=== PATIENT | female | born 1985 | race Caucasian/White ===

== ENCOUNTER → 2018-01-12 | Outpatient (CLI) | payer MEDICAID ==
[2017-07-11 20:00] VITALS: BMI 34.4
[~2018-01-12] MED LIST: AMOX500T10 PO; ASPI-1471 PO; B&C/1TAB2 PO; Benzocaine 60 ML TP; CALC-748 PO; DOCU240C67 PO; ENOX40DI8 SC; ENOX40DI8 SQ; HYDR-4309 PO; HYDR2TAB4 PO; IBUP800T37 PO; LOR5/325 PO; Lanolin TP; ONDA4TAB PO; PNV-9 PO; PREN-127 PO; PROG100C PO; PROG200C PO; WARF2TAB73 PO; [UNRECOGNIZED DRUG - CODE]; heparin
--- NOTE | 2018-01-12 11:21 | RADIOLOGY IMAGING REPORT ---
FACILITY: [facility] PATIENT NAME: Danya Corey : 1985 MR: [id number] V: [id number] EXAM DATE: ORDERING PHYSICIAN: ALLEN WINSLOW TECHNOLOGIST: [place] [facility] [place] Danya Corey : 1985 Visit/Account:[id number] Date of Sevice: 01/12/2018 KNEE LEFT W/O CONTRAST COMPARISON: None. HISTORY: Left knee pain, felt a pop in the knee for months ago, pain ever since that time TECHNIQUE: Noncontrast multiplanar MRI of the left knee utilizing T1 weighted and fluid sensitive se quences. CONTRAST: None. FINDINGS: FLUID: No significant effusion with a physiologic quantity of fluid in the joint. Juarez's cyst measu ring 0.8 x 1.8 x 3.9 cm with a trace amount of fluid tracking caudally from it suggesting partial rup ture. MENISCI: There is abnormal oblique intermediate linear signal in the posterior horn of the medial me niscus which does not definitively contact the surface of the meniscus on sagittal series but on luh nal images, it extends to the peripheral third of the meniscus, series 5 images 16 and 17, and on a s wang image it contacts the undersurface, series 5 image 16. The appearance is consistent with a fior pheral oblique tear with a small undersurface component. The rest of the medial meniscus is intact an d the lateral meniscus is intact. TENDONS/LIGAMENTS: The cruciate and medial collateral ligaments, lateral collateral ligamentous comp oni and extensor mechanism are intact. The biceps and popliteus tendons are intact. MUSCLES: There is no muscle atrophy or edema. CARTILAGE: No full-thickness cartilage defects are seen. BONES: There is no marrow signal abnormality or osseous malalignment. OTHER: Negative. IMPRESSION: 1. Peripheral oblique tear in the posterior horn of the medial meniscus, with a subtle undersurface component seen on a single image. 2. 3.9 cm left knee Juarez's cyst. Report Dictated By: Juan Machado at 01/12/2018 11:09 AM Report E-Signed By: Juan Machado at 01/12/2018 11:16 AM WSN:[id number]
== END ==
LOC: RAD 09:23
PROVIDERS: ATTEND Physician Assistant Medical
DX: S83.242A Other tear of medial meniscus, current injury, left knee, initial encounter (principal); M71.22 Synovial cyst of popliteal space [Baker], left knee

== ENCOUNTER 2018-11-21 05:13 | Inpatient (IN) | payer MEDICAID ==
[2018-11-21] VITALS (7 sets, daily range): BP systolic 122–139; BP diastolic 72–92; Ht 160 cm; Wt 86.2 kg
[~2018-11-21] VITALS: Ht 160 cm; Wt 86.2 kg
[~2018-11-21 05:13] MED LIST changes: -HYDR-4309 PO; +HYDR-653 PO
[2018-11-21] MEDS ORDERED: ACETAMINOPHEN 500 MG TAB PO PRN (05:15)
[2018-11-21] MEDS ORDERED: ONDANSETRON 4 MG/2 ML VIAL IVP PRN (05:15)
[2018-11-21] MEDS ORDERED: fentaNYL CITR 100 MCG/2 ML AMP IVP PRN (05:15)
[2018-11-21] MEDS ORDERED: LIDOCAINE/SOD BICARB 8.4% SYR SC PRN (05:15)
[2018-11-21] MEDS ORDERED: TERBUTALINE SULF 1 MG/ML VIAL SUBQ PRN (05:15)
[2018-11-21] MEDS ORDERED: METOCLOPRAMIDE 10 MG/2 ML SDV IVP PRN (05:15)
[2018-11-21] MEDS ORDERED: LIDOCAINE 1% LOCAL 300 MG/30ML INJ PRN (05:15)
[2018-11-21] MEDS ORDERED: FAMOTIDINE(*) 20MG/50ML PREMIX 50 ML IVPB PRN ×2 (05:15→06:30)
[2018-11-21] MEDS ORDERED: OXYTOCIN 30 UNIT/D5LR 500 ML 500 ML IV PRN ×5 (05:15→22:58)
[2018-11-21] MEDS ORDERED: cefOXitin/DEX(*) 2GM/50ML PREM 50 ML IVPB PRN (05:15)
[2018-11-21] MEDS ORDERED: PENICILLIN G 5 MILLUN/100 ML 100 ML IVPB ONE (06:00)
[2018-11-21 06:03] LABS: PLATELET COUNT, AUTOMATED 130 K/uL (150-450)
[2018-11-21] MEDS: LR(*) 1000 ML BAG 1,000 ML IV PRN ×2 (06:26→10:13)
[2018-11-21] MEDS ORDERED: CALCIUM CARBONATE 500 MG CHEW PO PRN (06:30)
[2018-11-21] MEDS ORDERED: [UNRECOGNIZED DRUG - CODE] (06:38)
[2018-11-21] MEDS ORDERED: [UNRECOGNIZED DRUG - CODE] SUBQ (07:18)
[2018-11-21] MEDS ORDERED: CALCIUM GLUC 10% 100 MG/ML VL IVP PRN (08:10)
[2018-11-21] MEDS ORDERED: MAGNESIUM SUL* 4 GM/100 ML BAG 100 ML IVPB ONE (10:00)
[2018-11-21] MEDS ORDERED: PENICILLIN G 2.5 MILLUN/100 ML 100 ML IVPB SCH (10:00)
[2018-11-21] MEDS ORDERED: MAGNESIUM SULF 20 GM/500 ML IV 500 ML IV SCH (10:30)
[2018-11-21] MEDS ORDERED: CARBOPROST TROMETHAM 250MCG/ML IM ONLY ONE (11:49)
[2018-11-21] MEDS: MAGNESIUM SULF 20 GM/500 ML IV 500 ML IV SCH (12:33)
[2018-11-21] MEDS ORDERED: LANOLIN OINT 7 GM TUBE TP PRN (12:35)
[2018-11-21] MEDS ORDERED: APAP/HYDROCODONE 325/5 TAB PO PRN (12:35)
[2018-11-21] MEDS ORDERED: MAGNESIUM HYDROXIDE* 30ML UDCP PO PRN (12:35)
[2018-11-21] MEDS ORDERED: GLYCERIN/WITCH HAZEL LEAF 1 PK TP PRN (12:35)
[2018-11-21] MEDS ORDERED: ACETAMINOPHEN 325 MG TAB PO PRN (12:35)
[2018-11-21] MEDS ORDERED: LABETALOL HCL 20 MG/4 ML SYR IVP PRN (12:35)
[2018-11-21] MEDS ORDERED: HYDROCORTISONE 2.5% CR 30GM TB PR PRN (12:35)
[2018-11-21] MEDS ORDERED: BENZOCAINE 20% 60 ML BTL TP PRN (12:35)
--- NOTE | 2018-11-21 12:48 | History & Physical ---
History of Present Illness Age of Patient: 33 : 7 Para or TPAL: 4 EDC per U/S: Dec 05, 2017 Estimated Gestational Age: 38.0 Chief Complaint Chronic hypertension for induction of labor History of Present Illness Mary has a history of hypertensive disease in prior pregnancies with preeclampsia with her first and gestational hypertension with the others. She has always been induced for hypertension disorders at 37-38 weeks. She has a heterozygous mutation for prothrombin gene and has been taking Lovenox 40 mg BID through switched to Heparin 10k units BID since 36 weeks. She held her PM dose last night. This has been typical for her others with mild range pressures and no evidence of superimposed preeclampsia throughout. Her most recent labs last week were WNL. She was given steroids at 35 weeks in case we delivered before 37 weeks. Labs this AM showed mild elevation in liver enzymes, slightly decreased plts at 130 but spot ptn/cr ratio at 0.2. She is being induced due to the chronic hypertension and impending superimposed preeclampsia. Likely she has a variant of HELLP developing. Past Medical, Surgical, Family and Obstetric Histories reviewed. Please see ACOG ch art. History Allergies: Coded Allergies: No Known Drug Allergies (Unverified , 11/30/16) Social History: No T/E/D. . Family History: No Family History of: FH: diabetes mellitus FH: heart disease FH: hypertension Malignant hyperthermia Med Rec Home Meds Reported Medications Heparin Sodium,Porcine/Pf (HEPARIN 2,000 UNIT/2 ML VIAL) 1,000 Unit/1 Ml Vial, 95121 UNIT SUBQ, VIAL 11/21/18 B&C/Fa/Zinc/Copper Oxide/Vit E (STRESS B-COMPLEX TABLET) 1 Each Tablet, 1 EACH PO 07/11/17 Calcium/Vit B12/Fa/Pyridoxine (FOLIC ACID-VIT B6-VIT B12 TAB) 1 Each Tablet, 1 EACH PO 11/30/16 Pnv With Ca,No.71/Iron/Fa ( VITAMIN TABLET) 1 Each Tablet, 1 EACH PO DAILY, TAB 07/28/14 Discontinued Reported Medications Heparin Sod,Porcine/0.9 % NaCl (Heparin 10,000 Unit/1,000Ml-Ns) 10K/1000ML Iv.soln 11/21/18 Discontinued Scripts Ibuprofen (IBUPROFEN) 800 Mg Tablet, 1 TAB PO Q8H, #30 TAB 0 Refills Take with food every 8 hours. Prov:CAREY CODY MD 07/13/17 Hydromorphone Hcl (HYDROMORPHONE HCL) 2 Mg Tablet, 2-4 MG PO Q4H for PAIN, #20 TAB 0 Refills Prov:CAREY CODY MD 07/13/17 Enoxaparin Sodium (LOVENOX) 40 Mg/0.4 Ml Disp.syrin, 40 MG SC QHS@2200 for 45 Days, SYR 0 Refills Prov:CAREY CODY MD 07/13/17 Review of Systems All Systems Reviewed/Normal: Yes, Except as Noted Eyes: No Vision Change Gastrointestinal: No Abdominal Pain Exam General Exam Vital Signs Vital Signs Date Time Temp Pulse Resp B/P (MAP) Pulse Ox O2 Delivery O2 Flow Rate FiO2 11/21/18 06:00 98.2 122 19 124/72 (89) 94 Room Air General Apperance: Alert/Awake/No Acute Distress Neuro: No Gross deficits Eyes: Normal Extraocular Movement & Vison Cardiovascular: Regular Rate and Rhythm Respiratory: No Respiratory Distress Abdomen: Soft, Non-Tender, Non-Distended, Gravid - Non-Tender, RUQ Non-Tender Integumentary: Skin Intact without Lesions or Rash Psychological: Alert & Oriented X3, Appropriate Mood & Affect Cervical Dialation: 5 Cervical Effacement (%): 100 Station: -2 Presentation: Vertex Fetus Heart Tone Variabilty: Moderate FHT Accelerations: 15X15 FHT Category: I Medical Decision Making Data Points Result Diagram: 11/21/1845 11/21/18544 VTE Prophylasis: Adult Pharmacological Contraindicati: Pt at Low Risk for VTE Mechanical Contraindications: Pt at Low Risk for VTE 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 Will add Magnesium for seizure prophylaxis although considering asymptomatic and no severe pressures or proteinuria, she likely has a variant of HELLP. Will treat as for severe preeclampsia with seizure prophylaxis for 24 horus . Monitor for worsening closely. Problem Qualifiers (1) HELLP (hemolytic anemia/elev liver enzymes/low platelets in ): Trimester: third trimester Qualified Codes: O14.23 - HELLP syndrome (HELLP), third trimester ABIGAIL LAGUERRE MD Nov 21, 2018 12:48
--- NOTE | 2018-11-21 12:52 | OB Delivery Note ---
Delivery Note Vaginal Delivery Type: Spont. Vaginal Delivery Delivery Date: Nov 21, 2018 Delivery Time: 12:11 Estimated Gestational Age(wks): 38.0 Infant Sex: Female Infant Weight (gms): [address] [place] Apgars: 1 Minute (8), 5 Minute (8) Repair Needed: Episiotomy-Midline, 2nd Degree Estimated Blood Loss: 300 Notes: Presented 3-4 cm dilated and abx prophylaxis for GBS started. Recieved 2 doses prior to delivery. Pitocin infusion initiated. After labs showing probable HELLP syndrome in, started MgSO4 for seizure prophylaxis. Pitocin titration to active pattern and AROM performed with clear fluid. Rapid progression after to complete by 1207. Effective pushes bringing baby to position. Pt requested episiotomy and midline performed. Delivery in SANDER position over second degree laceration without complication or extension. Placenta delivered spontaneous and intact. No complications. Uterus massaged firm. [employer] in Attendence: No Copies to: ABIGAIL LAGUERRE MD ; ABIGAIL LAGUERRE MD Nov 21, 2018 12:52
[2018-11-21] MEDS: IBUPROFEN 800 MG TAB PO SCH (13:19)
[2018-11-21] MEDS ORDERED: LR(*) 1000 ML BAG 1,000 ML ONE (20:23)
[2018-11-21] MEDS ORDERED: EUCALYPTUS/MENTHOL LOZ MM PRN ×2 (20:40)
[2018-11-21] MEDS ORDERED: BENZOCAINE/MENTHOL 1 EACH LOZG PO PRN (20:40)
[2018-11-21] MEDS ORDERED: LR(*) 1000 ML BAG 1,000 ML IV PRN (20:45)
[2018-11-21] MEDS: DOCUSATE CALCIUM 240 MG CAP PO SCH (20:56)
[2018-11-21] MEDS: CHLORPH/HYDROCOD SUSP CR 5 ML PO PRN (21:04)
[2018-11-22] VITALS (17 sets, daily range): BP systolic 109–158; BP diastolic 60–89
[2018-11-22] MEDS: IBUPROFEN 800 MG TAB PO SCH ×3 (00:13→18:27)
[2018-11-22] MEDS: MAGNESIUM SULF 20 GM/500 ML IV 500 ML IV SCH (04:04)
[2018-11-22] MEDS ORDERED: MISOPROSTOL 200 MCG TAB PO ONE ×2 (05:05→09:00)
[2018-11-22] MEDS ORDERED: MISOPROSTOL 200 MCG TAB ONE (05:07)
--- NOTE | 2018-11-22 08:31 | OB/GYN Progress Note ---
OB Subjective Progress Notes Subjective Pitocin stopped last night and uterus became boggy but no increase in bleeding. Cytotec 400 mcg administered PO and she had an adverse reaction to this with tachycardia and anxiety. It self resolved in about an hour. Uterus has remained firm since. Pt feeling tired and fatigued due to the magnesium. Labs trending toward improvement. Urine output has been high. GI: NEG Nausea : Voiding Well OB Objective Physical Exam Vital Signs Date Time Temp Pulse Resp B/P (MAP) Pulse Ox O2 Delivery O2 Flow Rate FiO2 11/22/18 08:10 105 16 116/60 (78) 97 Room Air 11/22/18 07:10 98.1 Intake and Output 11/22/18 07:00 Intake Total 5360 ml Output Total 5585 ml Balance -225 ml Intake Oral 3240 ml IV Total 2120 ml Output Urine Total 5585 ml # Voids 11 General Appearance: Alert/Awake/No Acute Distress Neurological: No Gross deficits Eyes: Normal Extraocular Movement & Vison Cardiovascular: Normal Rhythm & Peripheral Pulses, Regular Rate and Rhythm Respiratory: No Respiratory Distress, Clear to Auscultation Abdomen: Soft, Non-Tender, Non-Distended, Fundus Firm, Non-Tender Integumentary: Skin Intact without Lesions or Rash Psychological: Alert & Oriented X3, Appropriate Mood & Affect Result Diagram: 11/22/1847 11/22/18646 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 Monitor progress today. (3) care and examination immediately after delivery Status: Acute Assessment & Plan: Continue fior-care and monitor bleeding. Problem Qualifiers (1) HELLP (hemolytic anemia/elev liver enzymes/low platelets in ): Trimester: third trimester Qualified Codes: O14.23 - HELLP syndrome (HELLP), third trimester ABIGAIL LAGUERRE MD Nov 22, 2018 08:31
[2018-11-22] MEDS ORDERED: MEASLES,MUMP,RUBELLA VAC 0.5ML SUBQ ONE (09:00)
[2018-11-22] MEDS: DOCUSATE CALCIUM 240 MG CAP PO SCH ×2 (09:00→21:00)
[2018-11-22] MEDS ORDERED: DIPHTH/TETANUS/ACEL. PERTUSSIS IM ONLY ONE (09:00)
[2018-11-22] MEDS ORDERED: INFLUENZA VIRUS VAC 0.5ML SYR IM ONLY ONE (09:00)
[2018-11-22] MEDS: CHLORPH/HYDROCOD SUSP CR 5 ML PO PRN ×2 (09:44→23:52)
[2018-11-23] MEDS: IBUPROFEN 800 MG TAB PO SCH ×2 (01:33→08:30)
[2018-11-23 03:18] VITALS: BP 135/78
[2018-11-23] MEDS: DOCUSATE CALCIUM 240 MG CAP PO SCH (08:30)
[2018-11-23 08:48] VITALS: BP 124/61
[2018-11-23 10:22] LABS: PLATELET COUNT, AUTOMATED 197 K/uL (150-450)
--- NOTE | 2018-11-23 10:58 | OB/GYN Progress Note ---
OB Subjective Progress Notes Subjective Feeling well other than cold symptoms. Cough suppressant helps with sleep. Bleeding light and uterus firm. No blood pressure issues. Labs all trending back to normal. GI: NEG Nausea : Voiding Well Pain: Mild OB Objective Physical Exam Vital Signs Date Time Temp Pulse Resp B/P (MAP) Pulse Ox O2 Delivery O2 Flow Rate FiO2 11/23/18 08:48 97.7 101 18 124/61 (82) 95 Room Air Intake and Output 11/23/18 07:00 Intake Total 1100 ml Output Total 2000 ml Balance -900 ml Intake Oral 1100 ml Output Urine Total 2000 ml # Voids 1 General Appearance: Alert/Awake/No Acute Distress Neurological: No Gross deficits Eyes: Normal Extraocular Movement & Vison Cardiovascular: Normal Rhythm & Peripheral Pulses, Regular Rate and Rhythm Respiratory: No Respiratory Distress, Clear to Auscultation Abdomen: Soft, Non-Tender, Non-Distended, Fundus Firm, Non-Tender Integumentary: Skin Intact without Lesions or Rash Psychological: Alert & Oriented X3, Appropriate Mood & Affect Result Diagram: 11/23/18 1016 11/23/18 1016 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 Labs trending normal. Will check again at 6 weeks . Precautions for symptoms and call if worsens. (3) care and examination immediately after delivery Status: Acute Problem Qualifiers (1) HELLP (hemolytic anemia/elev liver enzymes/low platelets in ): Trimester: third trimester Qualified Codes: O14.23 - HELLP syndrome (HELLP), third trimester ABIGAIL LAGUERRE MD Nov 23, 2018 10:58
[2018-11-23] MEDS ORDERED: HYDR473S47 PO (11:13)
[2018-11-23] MEDS ORDERED: ENOX40DI8 SQ (11:13)
--- NOTE | 2018-11-23 11:14 | OB/GYN Discharge Summary ---
Discharge Summary Reason for Hosp/Final Diag: (1) Gestational [-induced] hypertension without significant proteinuria, third trimester (2) HELLP (hemolytic anemia/elev liver enzymes/low platelets in ) Hospital Course & Plan: resolving with time. Labs trending normal. Will check again at 6 weeks . Precautions for symptoms and call if worsens. (3) care and examination immediately after delivery Status: Acute Lates Vital Signs Vital Signs Date Time Temp Pulse Resp B/P (MAP) Pulse Ox O2 Delivery O2 Flow Rate FiO2 11/23/18 08:48 97.7 101 18 124/61 (82) 95 Room Air Weight (Pounds): 190 Result Diagram: 11/23/18 1016 11/23/18 1016 Condition: Improved Discharge: Home, Self Mcc Meds Active Scripts Hydrocodone/Chlorphen Polis (HYDROCODONE-CHLORPHENIRAM SUSP) 473 Ml Iman.er.12h, 5 ML PO Q12H PRN for COUGH, #4 OZ 0 Refills Prov:ABIGAIL BENÍTEZ MD 11/23/18 Reported Medications Heparin Sodium,Porcine/Pf (HEPARIN 2,000 UNIT/2 ML VIAL) 1,000 Unit/1 Ml Vial, 57743 UNIT SUBQ, VIAL 11/21/18 B&C/Fa/Zinc/Copper Oxide/Vit E (STRESS B-COMPLEX TABLET) 1 Each Tablet, 1 EACH P O 07/11/17 Calcium/Vit B12/Fa/Pyridoxine (FOLIC ACID-VIT B6-VIT B12 TAB) 1 Each Tablet, 1 EACH PO 11/30/16 Pnv With Ca,No.71/Iron/Fa ( VITAMIN TABLET) 1 Each Tablet, 1 EACH PO DAILY, TAB 07/28/14 Discontinued Reported Medications Heparin Sod,Porcine/0.9 % NaCl (Heparin 10,000 Unit/1,000Ml-Ns) 10K/1000ML Iv.soln 11/21/18 Discontinued Scripts Ibuprofen (IBUPROFEN) 800 Mg Tablet, 1 TAB PO Q8H, #30 TAB 0 Refills Take with food every 8 hours. 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 Benítez [phone] Follow up in: 6 wks PP or PO Discharge Diet: As Tolerates Discharge Activity: As Tolerates, No Heavy Lifting x 6 wks, No Heavy Lifting > 10lb, Pelvic Rest Copies to: ABIGAIL BENÍTEZ MD ; Problem Qualifiers (1) HELLP (hemolytic anemia/elev liver enzymes/low platelets in ): Trimester: third trimester Qualified Codes: O14.23 - HELLP syndrome (HELLP), third trimester ABIGAIL BENÍTEZ MD Nov 23, 2018 11:14
[2018-11-23] MEDS ORDERED: ENOXAPARIN 40 MG/0.4ML SYR SC ONE (11:15)
[2018-11-23 12:59] VITALS: BP 124/73
== END 2018-11-23 14:30 | disposition home or self-care (01) | DRG 806 ==
LOC: OB 05:13
PROVIDERS: ADMIT Obstetrics & Gynecology; ATTEND Obstetrics & Gynecology
PROC: 10E0XZZ Delivery of Products of Conception, External Approach (ICD-10-PCS; principal; 2018-11-21)
PROC: 3E033VJ Introduction of Other Hormone into Peripheral Vein, Percutaneous Approach (ICD-10-PCS; 2018-11-21)
PROC: 0W8NXZZ Division of Female Perineum, External Approach (ICD-10-PCS; 2018-11-21)
DX: O14.24 HELLP syndrome, complicating childbirth (principal); D68.52 Prothrombin gene mutation; Z37.0 Single live birth; O99.12 Other diseases of the blood and blood-forming organs and certain disorders involving the immune mechanism complicating childbirth; O10.92 Unspecified pre-existing hypertension complicating childbirth; Z3A.38 38 weeks gestation of pregnancy; T47.1X5A Adverse effect of other antacids and anti-gastric-secretion drugs, initial encounter; Y92.230 Patient room in hospital as the place of occurrence of the external cause; F41.9 Anxiety disorder, unspecified
CPT/HCPCS: 36415; 82040; 82247; 82310; 82374; 82435; 82565; 82570; 82947; 83615; 84075; 84132; 84155; 84156; 84295; 84450; 84460; 84520; 84550; 85025; 85027; 86703; 86850; 86900; 86901; J1650; J2001; J2540; J2590; J3475; J3490; J7120

== ENCOUNTER 2018-11-29 10:47 | Emergency (ER) | payer MEDICAID ==
[2018-11-21 06:00] VITALS: Wt 79.8 kg
[~2018-11-29 10:47] MED LIST changes: +HYDR473S47 PO; +[UNRECOGNIZED DRUG - CODE] SUBQ
--- NOTE | 2018-11-29 10:53 | ER Report ---
History and Physical Time Seen By MD: 10:53 HPI/ROS CHIEF COMPLAINT: Chest pain and fever HISTORY OF PRESENT ILLNESS: This is a 33-year-old female who presents to emergency department for chest pain and fever. The patient is a , 8 days, with a history of a clotting disorder and Lovenox use during . She also had help syndrome at the end of her 3rd trimester. Patient had a uncomplicated vaginal delivery. She has been febrile and not feeling well for the last week. Saw her JUDGE'S CLERK today, she had developed some right anterior chest pain, increasing in intensity over the last 1-2 days. She is tachycardic, was sent to the ER for further evaluation. Patient is not ill-appearing however she is warm, tachycardic on the bedside monitor with a rate of 120s, with a temperature of 99.7 in the emergency department, she also taken ibuprofen prior to arrival. She denies meningismus. No shortness of breath. No nausea or vo miting. No headaches. No rashes. No abdominal pain that has been unusual since the delivery. REVIEW OF SYSTEMS: Constitutional: As above. Eyes: No discharge. ENT: No sore throat. Cardiovascular: No chest pain, no palpitations. Respiratory: As above. Gastrointestinal: No abdominal pain, no vomiting. Genitourinary: No hematuria. Musculoskeletal: No back pain. Skin: No rashes. Neurological: No headache. Allergies: Coded Allergies: No Known Drug Allergies (Unverified , 11/29/18) Home Meds Active Scripts Enoxaparin Sodium (LOVENOX) 40 Mg/0.4 Ml Disp.syrin, 40 MG SQ BID, #30 SYR 1 Refill Prov:ABIGAIL LAGUERRE MD 11/23/18 Reported Medications Pnv With Ca,No.71/Iron/Fa ( VITAMIN TABLET) 1 Each Tablet, 1 EACH PO DAILY, TAB 07/28/14 Discontinued Reported Medications B&C/Fa/Zinc/Copper Oxide/Vit E (STRESS B-COMPLEX TABLET) 1 Each Tablet, 1 EACH PO 07/11/17 Calcium/Vit B12/Fa/Pyridoxine (FOLIC ACID-VIT B6-VIT B12 TAB) 1 Each Tablet, 1 EACH PO 11/30/16 Heparin Sodium,Porcine/Pf (HEPARIN 2,000 UNIT/2 ML VIAL) 1,000 Unit/1 Ml Vial, 07577 UNIT SUBQ, VIAL 11/21/18 Discontinued Scripts Hydrocodone/Chlorphen Polis (HYDROCODONE-CHLORPHENIRAM SUSP) 473 Ml Iman.er.12h, 5 ML PO Q12H PRN for COUGH, #4 OZ 0 Refills Prov:ABIGAIL LAGUERRE MD 11/23/18 Past Medical/Surgical History The patient has a past medical and surgical history of prothrombic gene mutation. . Reviewed Nurses Notes: Yes Hx Smoking: No Smoking Status: Former Smoker Exposure to Second Hand Smoke?: No Hx Substance Use Disorder: No Hx Alcohol Use: No Constitutional Vital Sign - Last 24 Hours 11/29/18 11/29/18 11/29/18 11/29/18 10:47 10:56 10:57 11:00 Temp 99.7 Pulse 138 139 Resp 15 B/P (MAP) 132/90 (104) 132/90 129/94 (106) Pulse Ox 95 95 O2 Delivery Room Air 11/29/18 11/29/18 11/29/18 11/29/18 11:17 11:22 11:45 11:48 Pulse 129 128 B/P (MAP) ???/??? (1665) 133/87 (102) Pulse Ox 96 91 11/29/18 11/29/18 11/29/18 11/29/18 12:00 12:22 12:30 12:35 Pulse 102 108 Resp 14 B/P (MAP) 127/104 (112) 117/79 (92) Pulse Ox 95 90 O2 Delivery Room Air 11/29/18 11/29/18 11/29/18 12:45 13:00 13:05 Pulse 103 B/P (MAP) 119/77 (91) 122/71 (88) Pulse Ox 93 Physical Exam General Appearance: The patient is alert, has no immediate need for airway protection and no signs of toxicity. Eyes: Pupils equal and round no pallor or injection. ENT, Mouth: Mucous membranes are moist. Respiratory: There are no retractions, lungs are clear to auscultation. Cardiovascular: Regular rate and rhythm, no murmurs, clicks or rubs. Gastrointestinal: Abdomen is soft and non tender, no masses, bowel sounds normal. Neurological: Alert and oriented to 4. Moving all extremities. Following commands. No focal neuro deficits. Skin: Warm and dry, no rashes. Musculoskeletal: Neck is supple non tender. Extremities are nontender, nonswollen and have full range of motion. DIFFERENTIAL DIAGNOSIS: After history and physical exam differential diagnosis was considered for pulmonary embolus, myocardial infarction, pleurisy, viral syndrome, influenza, bronchitis and pneumonia. Medical Decision Making Data Points Result Diagram: 11/29/18 1102 11/29/18 1102 Laboratory Hematology Test 11/29/18 11:02 11/29/18 11:15 11/29/18 11:34 Red Blood Count 4.44 M/uL (4.17-5.56) Mean Corpuscular Volume 87.3 fL (80.0-96.0) Mean Corpuscular Hemoglobin 29.9 pg (26.0-33.0) Mean Corpuscular Hemoglobin Concent 34.3 g/dL (32.0-36.0) Red Cell Distribution Width 14.3 % (11.5-14.5) Mean Platelet Volume 7.6 fL (7.2-11.1) Neutrophils (%) (Auto) 78.7 % (39.4-72.5) Lymphocytes (%) (Auto) 13.3 % (17.6-49.6) Monocytes (%) (Auto) 7.3 % (4.1-12.4) Eosinophils (%) (Auto) 0.4 % (0.4-6.7) Basophils (%) (Auto) 0.3 % (0.3-1.4) Nucleated RBC Relative Count (auto) 0.0 /100WBC Neutrophils # (Auto) 7.0 K/uL (2.0-7.4) Lymphocytes # (Auto) 1.2 K/uL (1.3-3.6) Monocytes # (Auto) 0.7 K/uL (0.3-1.0) Eosinophils # (Auto) 0.0 K/uL (0.0-0.5) Basophils # (Auto) 0.0 K/uL (0.0-0.1) Nucleated RBC Absolute Count (auto) 0.00 K/uL Prothrombin Time 13.4 seconds (12.0-14.4) Prothromb Time International Ratio 1.02 Activated Partial Thromboplast Time 40 seconds (23-35) Sodium Level 134 mmol/L (137-145) Potassium Level 3.6 mmol/L (3.5-5.0) Chloride Level 108 mmol/L (98-107) Carbon Dioxide Level 21 mmol/L (22-31) Blood Urea Nitrogen 12 mg/dl (7-18) Creatinine 0.70 mg/dl (0.52-1.04) Glomerular Filtration Rate Calc > 60.0 Random Glucose 134 mg/dl (75-110) Lactate 1.5 mmol/L (0.7-2.1) Calcium Level 8.6 mg/dl (8.4-10.2) Total Bilirubin 0.3 mg/dl (0.2-1.3) Aspartate Amino Transf (AST/SGOT) 19 U/L (0-35) Alanine Aminotransferase (ALT/SGPT) 43 U/L (0-56) Alkaline Phosphatase 116 U/L (0-126) Troponin I 0.019 ng/ml Total Protein 7.6 g/dl (6.3-8.2) Albumin 3.7 g/dl (3.5-5.0) Urine Color Yellow Urine Clarity Slightly-cloudy Urine pH 5.0 pH (4.8-9.5) Urine Specific [place] 1.030 Urine Protein 100 mg/dL (NEGATIVE) Urine Glucose (UA) Negative mg/dL (NEGATIVE) Urine Ketones Negative mg/dL (NEGATIVE) Urine Blood Moderate (NEGATIVE) Urine Nitrite Negative (NEGATIVE) Urine Bilirubin Negative (NEGATIVE) Urine Urobilinogen Negative mg/dL (0.2-1.9) Urine Leukocyte Esterase Moderate (NEGATIVE) Urine RBC 3 /HPF (0-2/HPF) Urine WBC 6 /HPF (0-5/HPF) Urine Squamous Epithelial Cells Many /LPF (</=FEW) Urine Transitional Epithelial Cells Few /LPF (NONE-FEW) Urine Bacteria Negative /HPF (NONE-FEW) Urine Mucus Few /HPF (NONE-FEW) Influenza Virus Type A (PCR) Negative (NEGATIVE) Influenza Virus Type B (PCR) Negative (NEGATIVE) Chemistry Test 11/29/18 11:02 11/29/18 11:15 11/29/18 11:34 White Blood Count 8.9 k/uL (4.5-11.0) Red Blood Count 4.44 M/uL (4.17-5.56) Hemoglobin 13.3 g/dL (12.0-16.0) Hematocrit 38.8 % (34.0-47.0) Mean Corpuscular Volume 87.3 fL (80.0-96.0) Mean Corpuscular Hemoglobin 29.9 pg (26.0-33.0) Mean Corpuscular Hemoglobin Concent 34.3 g/dL (32.0-36.0) Red Cell Distribution Width 14.3 % (11.5-14.5) Platelet Count 290 K/uL (150-450) Mean Platelet Volume 7.6 fL (7.2-11.1) Neutrophils (%) (Auto) 78.7 % (39.4-72.5) Lymphocytes (%) (Auto) 13.3 % (17.6-49.6) Monocytes (%) (Auto) 7.3 % (4.1-12.4) Eosinophils (%) (Auto) 0.4 % (0.4-6.7) Basophils (%) (Auto) 0.3 % (0.3-1.4) Nucleated RBC Relative Count (auto) 0.0 /100WBC Neutrophils # (Auto) 7.0 K/uL (2.0-7.4) Lymphocytes # (Auto) 1.2 K/uL (1.3-3.6) Monocytes # (Auto) 0.7 K/uL (0.3-1.0) Eosinophils # (Auto) 0.0 K/uL (0.0-0.5) Basophils # (Auto) 0.0 K/uL (0.0-0.1) Nucleated RBC Absolute Count (auto) 0.00 K/uL Prothrombin Time 13.4 seconds (12.0-14.4) Prothromb Time International Ratio 1.02 Activated Partial Thromboplast Time 40 seconds (23-35) Glomerular Filtration Rate Calc > 60.0 Lactate 1.5 mmol/L (0.7-2.1) Calcium Level 8.6 mg/dl (8.4-10.2) Total Bilirubin 0.3 mg/dl (0.2-1.3) Aspartate Amino Transf (AST/SGOT) 19 U/L (0-35) Alanine Aminotransferase (ALT/SGPT) 43 U/L (0-56) Alkaline Phosphatase 116 U/L (0-126) Troponin I 0.019 ng/ml Total Protein 7.6 g/dl (6.3-8.2) Albumin 3.7 g/dl (3.5-5.0) Urine Color Yellow Urine Clarity Slightly-cloudy Urine pH 5.0 pH (4.8-9.5) Urine Specific [place] 1.030 Urine Protein 100 mg/dL (NEGATIVE) Urine Glucose (UA) Negative mg/dL (NEGATIVE) Urine Ketones Negative mg/dL (NEGATIVE) Urine Blood Moderate (NEGATIVE) Urine Nitrite Negative (NEGATIVE) Urine Bilirubin Negative (NEGATIVE) Urine Urobilinogen Negative mg/dL (0.2-1.9) Urine Leukocyte Esterase Moderate (NEGATIVE) Urine RBC 3 /HPF (0-2/HPF) Urine WBC 6 /HPF (0-5/HPF) Urine Squamous Epithelial Cells Many /LPF (</=FEW) Urine Transitional Epithelial Cells Few /LPF (NONE-FEW) Urine Bacteria Negative /HPF (NONE-FEW) Urine Mucus Few /HPF (NONE-FEW) Influenza Virus Type A (PCR) Negative (NEGATIVE) Influenza Virus Type B (PCR) Negative (NEGATIVE) Coagulation Test 11/29/18 11:02 Prothrombin Time 13.4 seconds Prothromb Time International Ratio 1.02 Activated Partial Thromboplast Time 40 seconds Urinalysis Test 11/29/18 11:15 Urine Color Yellow Urine Clarity Slightly-cloudy Urine pH 5.0 pH (4.8-9.5) Urine Specific [place] 1.030 Urine Protein 100 mg/dL (NEGATIVE) Urine Glucose (UA) Negative mg/dL (NEGATIVE) Urine Ketones Negative mg/dL (NEGATIVE) Urine Blood Moderate (NEGATIVE) Urine Nitrite Negative (NEGATIVE) Urine Bilirubin Negative (NEGATIVE) Urine Urobilinogen Negative mg/dL (0.2-1.9) Urine Leukocyte Esterase Moderate (NEGATIVE) Urine RBC 3 /HPF (0-2/HPF) Urine WBC 6 /HPF (0-5/HPF) Urine Squamous Epithelial Cells Many /LPF (</=FEW) Urine Transitional Epithelial Cells Few /LPF (NONE-FEW) Urine Bacteria Negative /HPF (NONE-FEW) Urine Mucus Few /HPF (NONE-FEW) EKG/Imaging EKG Interpretation 12 lead EKG: Time of EKG 1113. Rhythm: Sinus tachycardia, ventricular rate 123 bpm. [place]: normal QRS: normal ST segments: No ST depression or elevation identified. No changes from the 11/30/2016 EKG. [place] [facility] [place] Danya Core[place] : 1985 Visit/Account:[id number] Date of Sevice: 11/29/2018 CT angiogram chest with contrast Indication: Shortness breath. One week . Comparison: None available. Technique: Axial CT images are obtained through the chest after administration of 75 mL Isovue 370 IV contrast. Reformatted coronal and sagittal images were reviewed as well as coronal MIP images. One of the following dose optimization techniques was utilized in the performance of this exam: automated exposure control; adjustment of the mA and/or kV according to the patient's size; or use of an iterative reconstruction technique. Specific details can be referenced in the facility's radiology CT exam operational policy. FINDINGS: No evidence of filling defect within the pulmonary vasculature to suggest pulmonary embolus. Heart is normal size without pericardial effusion. The aorta shows no aneurysm or dissection. The mediastinum and hilar regions show no enlarged lymph nodes or abnormal density. Lungs show no consolidation, pleural effusion, pneumothorax, discrete nodule or focal interstitial opacities. Airways are clear. Bony structures show no acute fractures or aggressive bony lesions. Chest wall shows no enlarged axillary lymph nodes or masses. Limited views of the upper abdomen are unremarkable. IMPRESSION: 1. No evidence of pulmonary embolus. 2. No acute cardiothoracic abnormality Report Dictated By: Rancho Mayo at 11/29/2018 12:38 PM Report E-Signed By: Rancho Mayo at 11/29/2018 12:45 PM WSN:[id number] ED Course/Re-evaluation Clinical Indication for ER IV: Hydration, IV Access ED Course The patient was admitted to room. A history of physical were obtained. Differential diagnoses were considered. 9 user. A CBC, CMP, PTT and INR were obtained. CBC unremarkable, chemistry showing sodium 134, chloride 108 CO2 21, negative troponin, lactate 1.5, INR 1.02, concentrated UA otherwise unremarkable, negative influenza. A 1 L normal saline bolus was given. A CT of the chest was negative for pulmonary embolus or any other acute abnormalities. EKG showing sinus tachycardia, otherwise unremarkable. I reviewed the laboratory results and imaging results with the patient. I did tell her that this is likely a viral illness and should pass. I did however recommend following up sooner should she have any other concerning symptoms, she does have a follow-up appointment with her JUDGE'S CLERK one in 6 weeks, she will return to the ER for any other concerns or worsening symptoms. Patient expressed understanding and was in agreement with plan care and discharged home. Decision to Disposition Date: Nov 29, 2018 Decision to Disposition Time: 13:18 Depart Departure Latest Vital Signs Vital Signs Date Time Temp Pulse Resp B/P (MAP) Pulse Ox O2 Delivery O2 Flow Rate FiO2 11/29/18 13:05 103 93 11/29/18 13:00 122/71 (88) 11/29/18 12:22 14 Room Air 11/29/18 10:57 99.7 Impression: Primary Impression: Viral syndrome Condition: Improved Disposition: HOME OR SELF-CARE Referrals: ABIGAIL LAGUERRE MD (PCP) 2 Weeks Patient Instructions: Viral Syndrome (ED) Additional Instructions: No evidence of pulmonary embolus or pneumonia. No concerning findings with the blood work or urine. Negative for influenza. Your symptoms are consistent with a viral illness. Symptomatic treatment such as ibuprofen and Tylenol as needed. Be sure to drink plenty of water. Get plenty of rest. Please follow-up with Dr. Laguerre within the next 6 weeks as scheduled, if you any other concerns please follow up sooner. Return to the emergency department for any other concerns or worsening symptoms. ROMAN HAIRSTON INSTRUMENT TECHNICIAN-BC Nov 29, 2018 10:53
[2018-11-29] MEDS ORDERED: NS(*) 0.9% 1000 ML BAG 1,000 ML IV ONE (11:04)
[2018-11-29 11:16] LABS: PLATELET COUNT, AUTOMATED 290 K/uL (150-450)
[2018-11-29] MEDS ORDERED: NS(*) 0.9% 50 ML BAG 50 ML ONE (11:21)
[2018-11-29] MEDS ORDERED: IOPAMIDOL 76% 50 ML INFUS BTL 100 ML ONE (11:21)
--- NOTE | 2018-11-29 11:22 | EKG ---
FACILITY: [facility] PATIENT NAME: LEONARDA YEN : [id number] MR: [id number] V: [id number] EXAM DATE: ORDERING PHYSICIAN: ROMAN HAIRSTON TECHNOLOGIST: SRINIVAS Ronquillo Reason : CP Blood Pressure : / mmHG Vent. Rate : 123 BPM Atrial Rate : 123 BPM P-R Int : 122 ms QRS Dur : 084 ms QT Int : 298 ms P-R-T Axes : 053 048 022 degrees QTc Int : 426 ms Sinus tachycardia Otherwise normal ECG When compared with ECG of 30-NOV-2016 11:57, No significant change was found Confirmed by CAREY GARDINER ([id number]) on 11/29/2018 11:30:49 AM Referred By: Confirmed By:CAREY GARDINER
[2018-11-29 11:28] LABS: INR 1.02
--- NOTE | 2018-11-29 12:49 | RADIOLOGY IMAGING REPORT ---
FACILITY: [facility] [place] PATIENT NAME: Danya Corey : 1985 MR: [id number] V: [id number] EXAM DATE: ORDERING PHYSICIAN: ROMAN HAIRSTON TECHNOLOGIST: Location: [facility] Patient: Danya Corey : 1985 Visit/Account:[id number] Date of Sevice: 11/29/2018 CT angiogram chest with contrast Indication: Shortness breath. One week . Comparison: None available. Technique: Axial CT images are obtained through the chest after administration of 75 mL Isovue 370 IV contrast. Reformatted coronal and sagittal images were reviewed as well as coronal MIP images. One of the following dose optimization techniques was utilized in the performance of this exam: auto mated exposure control; adjustment of the mA and/or kV according to the patient's size; or use of an iterative reconstruction technique. Specific details can be referenced in the facility's radiology C T exam operational policy. FINDINGS: No evidence of filling defect within the pulmonary vasculature to suggest pulmonary embolus. Heart is normal size without pericardial effusion. The aorta shows no aneurysm or dissection. The med iastinum and hilar regions show no enlarged lymph nodes or abnormal density. Lungs show no consolidation, pleural effusion, pneumothorax, discrete nodule or focal interstitial op acities. Airways are clear. Bony structures show no acute fractures or aggressive bony lesions. Chest wall shows no enlarged axil josh lymph nodes or masses. Limited views of the upper abdomen are unremarkable. IMPRESSION: 1. No evidence of pulmonary embolus. 2. No acute cardiothoracic abnormality Report Dictated By: Rancho Mayo at 11/29/2018 12:38 PM Report E-Signed By: Rancho Mayo at 11/29/2018 12:45 PM WSN:[id number]
[2018-11-29 13:00] VITALS: BP 122/71
== END 2018-11-29 13:28 | disposition home or self-care (01) ==
LOC: ER 10:48
DX: B34.9 Viral infection, unspecified (principal); R00.0 Tachycardia, unspecified
CPT/HCPCS: 71275; 81001; 83605; 84484; 85025; 85610; 85730; 87040; 87502; 93005; 96360; 99284; J7030; J7050; Q9967; 82040; 82247; 82310; 82374; 82435; 82565; 82947; 84075; 84132; 84155; 84295; 84450; 84460; 84520